=== PATIENT | female | born 1985 | race African-American/Black ===

== ENCOUNTER → 2016-12-30 | Outpatient (REF) | payer BC ==
[2016-12-30 13:22] LABS: ANION GAP 9 MEQ/L (8-16); BLOOD UREA NITROGEN 14 MG/DL (7-18); CALCIUM LEVEL 8.6 MG/DL (8.5-10.1); CARBON DIOXIDE LEVEL 23 MEQ/L (21-32); CHLORIDE LEVEL 110 MEQ/L (98-107); CREATININE FOR GFR 0.75 MG/DL (0.55-1.02); GLOMERULAR FILTRATION RATE > 60.0 (>60); GLUCOSE, FASTING 88 MG/DL (70-105); SODIUM LEVEL 142 MEQ/L (136-145)
== END ==
LOC: M LABDRAW1 11:52
PROVIDERS: ATTEND Emergency Medicine
DX: E87.6 Hypokalemia (principal); E55.9 Vitamin D deficiency, unspecified

== ENCOUNTER 2017-07-12 09:50 | Emergency (ER) | payer OTHER, SELFPAY | END 2017-07-12 12:09 | disposition home or self-care (01) | LOC: M ED 09:50 | DX: J32.9 Chronic sinusitis, unspecified (principal); J30.9 Allergic rhinitis, unspecified; K21.9 Gastro-esophageal reflux disease without esophagitis; Z79.899 Other long term (current) drug therapy; Z88.8 Allergy status to other drugs, medicaments and biological substances; Z88.5 Allergy status to narcotic agent; Z91.040 Latex allergy status; Z87.19 Personal history of other diseases of the digestive system | CPT/HCPCS: 99283 ==

== ENCOUNTER → 2017-10-12 | Outpatient (REF) | payer OTHER ==
[2017-10-12 13:25] LABS: HEMATOCRIT 36.5 % (36.0-47.0); HEMOGLOBIN 11.2 g/dl (12.0-15.5); MEAN CORPUSCULAR HEMOGLOBIN 25.2 pg (27.0-33.0); MEAN CORPUSCULAR HGB CONC 30.7 g/dl (32.0-36.5); MEAN CORPUSCULAR VOLUME 82.2 fl (80.0-96.0); PLATELET COUNT, AUTOMATED 282 10^3/uL (150-450); RED BLOOD COUNT 4.44 10^6/uL (4.00-5.40); WHITE BLOOD COUNT 5.8 10^3/uL (4.0-10.0)
[2017-10-12 14:09] LABS: HCG, SERUM QUANTITATIVE 1308 MIU/ML
[2017-10-13 11:37] LABS: RUBELLA IgG QUALITATIVE IMMUNE (IMMUNE)
[2017-10-13 11:41] LABS: HBsAg Prenatal NEGATIVE (NEGATIVE)
[2017-10-13 12:05] LABS: HEPATITIS C VIRUS ABY INDEX 0.1 INDEX (<0.8)
[2017-10-13 12:07] LABS: HIV 1&2 SCREEN CENTAUR NEGATIVE (NEGATIVE)
== END ==
LOC: M LAB REF 13:04
DX: O36.80X0 Pregnancy with inconclusive fetal viability, not applicable or unspecified (principal)

== ENCOUNTER 2017-11-28 16:31 | Emergency (ER) | payer OTHER ==
[2017-11-28 17:19] LABS: HEMATOCRIT 37.6 % (36.0-47.0); HEMOGLOBIN 12.2 g/dl (12.0-15.5); MEAN CORPUSCULAR HEMOGLOBIN 27.8 pg (27.0-33.0); MEAN CORPUSCULAR HGB CONC 32.4 g/dl (32.0-36.5); MEAN CORPUSCULAR VOLUME 85.6 fl (80.0-96.0); PLATELET COUNT, AUTOMATED 271 10^3/uL (150-450); RED BLOOD COUNT 4.39 10^6/uL (4.00-5.40); RED CELL DISTRIBUTION WIDTH 16.2 % (11.5-14.5); WHITE BLOOD COUNT 6.9 10^3/uL (4.0-10.0)
[2017-11-28 17:25] LABS: KETONE, URINE AUTO RFX NEGATIVE (NEGATIVE); LEUKOCYTE ESTERASE UR AUTO RFX NEGATIVE (NEGATIVE); MUCUS, URINE RFX SMALL (NEGATIVE); NITRITE, URINE AUTO RFX NEGATIVE (NEGATIVE); RBC, URINE AUTO RFX 170 /HPF (0-3); SPECIFIC GRAVITY UR AUTO RFX 1.024 (1.002-1.035); SQUAM EPITHELIAL CELL UR AURFX 2 /HPF (0-6); WBC, URINE AUTO RFX 4 /HPF (0-3)
[2017-11-28 17:46] LABS: BASO % 0.3 % (0.0-1.0); EOS # 0.2 10^3/uL (0.0-0.50); EOS % 2.8 % (0.0-3.0); IMMATURE GRANULOCYTE % 0.3 % (0-3.0); LYMPH # 2.7 10^3/uL (1.5-4.5); LYMPH % 39.4 % (24.0-44.0); MONO # 0.5 10^3/uL (0.0-0.8); MONO % 6.7 % (0.0-5.0); NEUTROPHILS # 3.5 10^3/uL (1.8-7.7); NEUTROPHILS % 50.5 % (36.0-66.0)
[2017-11-28 17:47] LABS: DIFF SLIDE NUMBER 179; PLATELET ESTIMATE NORMAL (NORMAL)
[2017-11-28 17:51] LABS: HCG, SERUM QUANTITATIVE 4635 MIU/ML
[2017-11-28 21:55] LABS: CHLAMYDIA DNA AMPLIFICATION NEGATIVE (NEGATIVE); GC DNA AMPLIFICATION NEGATIVE (NEGATIVE)
== END 2017-11-28 21:30 | disposition home or self-care (01) ==
LOC: M ED 16:31
DX: O02.0 Blighted ovum and nonhydatidiform mole (principal); O99.611 Diseases of the digestive system complicating pregnancy, first trimester; K21.9 Gastro-esophageal reflux disease without esophagitis; Z3A.08 8 weeks gestation of pregnancy; Z88.5 Allergy status to narcotic agent; Z88.8 Allergy status to other drugs, medicaments and biological substances; Z91.040 Latex allergy status
CPT/HCPCS: 76801

== ENCOUNTER → 2017-11-30 | Outpatient (REF) | payer OTHER ==
[2017-11-30 14:59] LABS: HCG, SERUM QUANTITATIVE 3681 MIU/ML
== END ==
LOC: M LAB REF 13:30
DX: O03.9 Complete or unspecified spontaneous abortion without complication (principal)

== ENCOUNTER → 2017-12-14 | Outpatient (REF) | payer OTHER ==
[2017-12-14 14:14] LABS: HCG, SERUM QUANTITATIVE 50 MIU/ML
== END ==
LOC: M LAB REF 13:04
DX: O03.9 Complete or unspecified spontaneous abortion without complication (principal)

== ENCOUNTER → 2017-12-20 | Outpatient (REF) | payer OTHER ==
[2017-12-20 14:02] LABS: HCG, SERUM QUANTITATIVE 20 MIU/ML
== END ==
LOC: M LAB REF 12:58
DX: O03.9 Complete or unspecified spontaneous abortion without complication (principal)

== ENCOUNTER → 2018-05-23 | Outpatient (CLI) | payer OTHER | LOC: M WUC 18:40 | DX: R93.6 Abnormal findings on diagnostic imaging of limbs (principal); M25.561 Pain in right knee | CPT/HCPCS: 73560 ==

== ENCOUNTER → 2018-05-26 | Outpatient (CLI) | payer OTHER ==
[2018-05-26 20:25] LABS: URIC ACID 3.9 MG/DL (2.6-6.0)
[2018-05-26 20:25] LABS: C REACTIVE PROTEIN QUANTITATIV < 0.30 MG/DL (0.00-0.30); RHEUMATOID FACTOR QUANT < 10.0 IU/ML (<15.0)
[2018-05-26 22:30] LABS: ERYTHROCYTE SEDIMENTATION RATE 8 mm/hr (0-20)
== END ==
LOC: M WUC 18:00
DX: M25.561 Pain in right knee (principal)
CPT/HCPCS: 84550

== ENCOUNTER → 2018-10-11 | Outpatient (REF) | payer OTHER ==
[~2018-10-11] MED LIST: AMOX875T PO; FLON1SPR; GUAI1200 PO; OMEP40CA2 PO; ZYRT10CA5 PO
[2018-10-11 12:34] LABS: BLOOD UREA NITROGEN 7 MG/DL (7-18); CALCIUM LEVEL 8.9 MG/DL (8.5-10.1); CARBON DIOXIDE LEVEL 22 MEQ/L (21-32); CHLORIDE LEVEL 110 MEQ/L (98-107); CREATININE FOR GFR 0.82 MG/DL (0.55-1.30); GLOMERULAR FILTRATION RATE > 60.0 (>60); GLUCOSE, FASTING 93 MG/DL (70-100); POTASSIUM SERUM 3.5 MEQ/L (3.5-5.1); SODIUM LEVEL 140 MEQ/L (136-145)
== END ==
LOC: M LABDRAW1 10:03
PROVIDERS: ATTEND Physician Assistant
DX: Z00.00 Encounter for general adult medical examination without abnormal findings (principal)

== ENCOUNTER → 2018-11-15 | Outpatient (REF) | payer OTHER ==
[2018-11-15 14:16] LABS: HEMATOCRIT 37.7 % (36.0-47.0); HEMOGLOBIN 12.7 g/dl (12.0-15.5); MEAN CORPUSCULAR HEMOGLOBIN 31.2 pg (27.0-33.0); MEAN CORPUSCULAR HGB CONC 33.7 g/dl (32.0-36.5); MEAN CORPUSCULAR VOLUME 92.6 fl (80.0-96.0); PLATELET COUNT, AUTOMATED 248 10^3/uL (150-450); RED BLOOD COUNT 4.07 10^6/uL (4.00-5.40); WHITE BLOOD COUNT 6.6 10^3/uL (4.0-10.0)
[2018-11-15 15:20] LABS: HCG, SERUM QUANTITATIVE 105252 MIU/ML
[2018-11-16 10:15] LABS: RUBELLA IgG QUALITATIVE IMMUNE (IMMUNE)
[2018-11-16 10:46] LABS: HIV 1&2 SCREEN CENTAUR NEGATIVE (NEGATIVE)
== END ==
LOC: M LAB REF 12:52
PROVIDERS: ATTEND Obstetrics & Gynecology
DX: O36.80X0 Pregnancy with inconclusive fetal viability, not applicable or unspecified (principal); Z32.01 Encounter for pregnancy test, result positive

== ENCOUNTER 2018-12-09 12:03 | Emergency (ER) | payer OTHER ==
[~2018-12-09] VITALS: Ht 165.1 cm; Wt 88.8 kg
[2018-12-09 12:52] LABS: BASO % 0.2 % (0.0-1.0); EOS # 0.1 10^3/uL (0.0-0.50); HEMATOCRIT 37.5 % (36.0-47.0); HEMOGLOBIN 12.8 g/dl (12.0-15.5); LYMPH # 1.8 10^3/uL (1.5-4.5); LYMPH % 30.4 % (24.0-44.0); MEAN CORPUSCULAR HEMOGLOBIN 31.7 pg (27.0-33.0); MEAN CORPUSCULAR HGB CONC 34.1 g/dl (32.0-36.5); MEAN CORPUSCULAR VOLUME 92.8 fl (80.0-96.0); MONO # 0.4 10^3/uL (0.0-0.8); MONO % 6.8 % (0.0-5.0); NEUTROPHILS # 3.7 10^3/uL (1.8-7.7); NEUTROPHILS % 61.1 % (36.0-66.0); PLATELET COUNT, AUTOMATED 239 10^3/uL (150-450); RED BLOOD COUNT 4.04 10^6/uL (4.00-5.40); WHITE BLOOD COUNT 6.1 10^3/uL (4.0-10.0)
--- NOTE | 2018-12-09 13:11 | REP ---
Clinical: Vaginal bleeding for viability. Technique: Transabdominal first trimester obstetrical ultrasound with color Doppler evaluation. Findings: Single live intrauterine identified. [place] rump length of 7 cm corresponds to 13 weeks 1 day gestational age with SARA 06/15/2019. heart rate equals 165 beats per minute. Placenta identified posteriorly and grade zero with evidence for complete abruption likely to resolve as progresses. Cervix measures 3.2 cm length and appears closed. Impression: Single live intrauterine at 13 weeks 1 day gestational age. Complete anatomical assessment should be performed at 19-20 weeks. Electronically Signed by Timi Reed MD 12/09/2018 01:02 P
[2018-12-09] MEDS ORDERED: ONDANSETRON 4 MG ORAL DISINTEGRATING TAB (Q0162 PER 1MG) PO ONE (13:15)
[2018-12-09 13:35] LABS: BLOOD UREA NITROGEN 7 MG/DL (7-18); CALCIUM LEVEL 9.3 MG/DL (8.5-10.1); CARBON DIOXIDE LEVEL 25 MEQ/L (21-32); CHLORIDE LEVEL 107 MEQ/L (98-107); CREATININE FOR GFR 0.57 MG/DL (0.55-1.30); GLOMERULAR FILTRATION RATE > 60.0 (>60); GLUCOSE, FASTING 78 MG/DL (70-100); HCG, SERUM QUANTITATIVE 59382 MIU/ML; POTASSIUM SERUM 3.9 MEQ/L (3.5-5.1); SODIUM LEVEL 140 MEQ/L (136-145)
[2018-12-09] MEDS ORDERED: FLAG500T PO (14:43)
[2018-12-09] MEDS ORDERED: ZOFR4TAB16 PO (14:45)
[2018-12-09 15:54] LABS: CHLAMYDIA DNA AMPLIFICATION NEGATIVE (NEGATIVE); GC DNA AMPLIFICATION NEGATIVE (NEGATIVE)
[2018-12-09 16:01] VITALS: BP 125/75
== END 2018-12-09 16:04 | disposition home or self-care (01) ==
LOC: M ED 12:03
DX: O23.599 Infection of other part of genital tract in pregnancy, unspecified trimester (principal); Z3A.13 13 weeks gestation of pregnancy; Z87.442 Personal history of urinary calculi; Z88.5 Allergy status to narcotic agent; Z91.040 Latex allergy status
CPT/HCPCS: 36415; 76801; 80048; 81001; 84702; 85025; 86901; 87210; 87661; 99284; Q0162

== ENCOUNTER 2018-12-18 04:19 | Emergency (ER) | payer OTHER ==
[~2018-12-18] VITALS: Ht 165.1 cm; Wt 87.3 kg
[~2018-12-18 04:19] MED LIST changes: +FLAG500T PO; +ZOFR4TAB16 PO
[2018-12-18 04:49] LABS: BASO % 0.1 % (0.0-1.0); EOS # 0.1 10^3/uL (0.0-0.50); EOS % 1.2 % (0.0-3.0); HEMATOCRIT 36.2 % (36.0-47.0); HEMOGLOBIN 12.5 g/dl (12.0-15.5); LYMPH # 1.6 10^3/uL (1.5-4.5); MEAN CORPUSCULAR HEMOGLOBIN 32.1 pg (27.0-33.0); MEAN CORPUSCULAR HGB CONC 34.5 g/dl (32.0-36.5); MEAN CORPUSCULAR VOLUME 92.8 fl (80.0-96.0); MONO # 0.3 10^3/uL (0.0-0.8); MONO % 4.5 % (0.0-5.0); NEUTROPHILS # 4.9 10^3/uL (1.8-7.7); NEUTROPHILS % 70.9 % (36.0-66.0); PLATELET COUNT, AUTOMATED 205 10^3/uL (150-450); WHITE BLOOD COUNT 6.8 10^3/uL (4.0-10.0)
[2018-12-18] MEDS ORDERED: KETOROLAC 60 MG/2 ML VIAL (J1885) IM ONE (05:45)
[2018-12-18 05:49] VITALS: BP 112/71
--- NOTE | 2018-12-18 06:29 | REPVR ---
EXAM: US First Trimester, Transabdominal EXAM DATE/TIME: 12/18/2018 5:10 AM CLINICAL HISTORY: 33 years old, female; complicated by abdominal or pelvic pain; Lower; Second trimester; Gestational age or lmp: 14 weeks; ; Additional info: Shonna do TECHNIQUE: Imaging protocol: Real-time transabdominal obstetrical ultrasound of the maternal pelvis and a first trimester , less than 14 weeks 0 days, with image documentation. COMPARISON: US PELVIC NON OB COMPLETE 06/15/2013 8:32 AM FINDINGS: Limitations: Limited examination for viability and dating was performed. GESTATION: Gestation: Single, live, intrauterine gestation Heart rate: heart rate: 152 beats per minute. Placenta: Placenta is posterior. Amniotic fluid: Amniotic fluid is grossly within normal limits for gestational age. BIOMETRY: Estimated gestational age: Gestational age by today's ultrasound 14 weeks, 3 days. Estimated due date: Estimated date of delivery 06/15/2019. Estimated weight: 96 g (60% Hadlock). Biparietal diameter: 2.7 cm for a gestational age of 14 weeks, 6 days. Head circumference: 10.3 cm for a gestational age of 14 weeks, 6 days. Abdominal circumference: 8.2 cm for a gestational age of 14 weeks, 4 days. Humerus length: 1.5 cm for gestational age of 14 weeks, 2 days. Femur length: 1.4 cm for a gestational age of 14 weeks, 0 days. MATERNAL: Uterus: Unremarkable. Cervix: Cervical length: 2.5 cm. Right adnexa: Unremarkable. Left adnexa: Unremarkable. Intraperitoneal: No intraperitoneal free fluid. IMPRESSION: Single live intrauterine fetus with an estimated gestational age of 14 weeks, 3 days, and a heart rate of 152 beats per minute. Routine anatomic survey at 19-20 weeks gestational age is recommended. Electronically signed by: Adrián Ma On 12/18/2018 06:28:37 AM
== END 2018-12-18 05:50 | disposition home or self-care (01) ==
LOC: M ED 04:19
DX: O20.0 Threatened abortion (principal); O99.612 Diseases of the digestive system complicating pregnancy, second trimester; Z3A.14 14 weeks gestation of pregnancy; Z79.899 Other long term (current) drug therapy; Z88.6 Allergy status to analgesic agent; Z88.5 Allergy status to narcotic agent; Z91.040 Latex allergy status

== ENCOUNTER → 2019-03-08 | Outpatient (CLI) | payer OTHER ==
[2019-03-08 19:50] LABS: HEMATOCRIT 33.8 % (36.0-47.0); HEMOGLOBIN 11.6 g/dl (12.0-15.5); MEAN CORPUSCULAR HEMOGLOBIN 33.5 pg (27.0-33.0); MEAN CORPUSCULAR HGB CONC 34.3 g/dl (32.0-36.5); MEAN CORPUSCULAR VOLUME 97.7 fl (80.0-96.0); PLATELET COUNT, AUTOMATED 188 10^3/uL (150-450); RED BLOOD COUNT 3.46 10^6/uL (4.00-5.40); WHITE BLOOD COUNT 8.7 10^3/uL (4.0-10.0)
== END ==
LOC: M WUC 17:16
PROVIDERS: ATTEND Obstetrics & Gynecology
DX: Z34.82 Encounter for supervision of other normal pregnancy, second trimester (principal); Z3A.00 Weeks of gestation of pregnancy not specified

== ENCOUNTER 2019-06-06 07:30 | Inpatient (IN) | payer OTHER ==
[~2019-06-06] VITALS: Ht 165.1 cm; Wt 88.7 kg
[~2019-06-06 07:30] MED LIST changes: +CETI10CH PO; -OMEP40CA2 PO; +OMEP40CA97 PO
[2019-06-07] VITALS (19 sets, daily range): BP systolic 98–118; BP diastolic 57–79
[2019-06-07] MEDS ORDERED: BICITRA 30ML SOLN UDC PO ONE (05:15)
[2019-06-07] MEDS ORDERED: ceFAZolin SOD 2 GM in IV 1 EA IV ONE (05:15)
[2019-06-07] MEDS ORDERED: LR 1,000 ML IV SCH (05:15)
[2019-06-07] MEDS ORDERED: LACTATED RINGER'S 1000 ML IV STA (05:15)
[2019-06-07 05:41] LABS: HEMATOCRIT 36.4 % (36.0-47.0); HEMOGLOBIN 12.3 g/dl (12.0-15.5); MEAN CORPUSCULAR HEMOGLOBIN 32.5 pg (27.0-33.0); MEAN CORPUSCULAR HGB CONC 33.8 g/dl (32.0-36.5); PLATELET COUNT, AUTOMATED 175 10^3/uL (150-450); RED BLOOD COUNT 3.79 10^6/uL (4.00-5.40); WHITE BLOOD COUNT 6.7 10^3/uL (4.0-10.0)
[2019-06-07] MEDS ORDERED: MULTTAB20 PO (06:10)
[2019-06-07] MEDS ORDERED: MORPHINE PRES-FREE INJ 10 MG/10 ML VIAL (J2274) As Ordered ONE (07:17)
[2019-06-07] MEDS ORDERED: dexameTHASONE 4 MG/ML 1ML VIAL (J1100) As Ordered ONE (07:18)
[2019-06-07] MEDS ORDERED: ONDANSETRON 4MG/2ML VIAL (J2405) As Ordered ONE (07:18)
[2019-06-07] MEDS ORDERED: OXYTOCIN INJ 10 UNITS/ML VIAL (J2590) As Ordered ONE (07:24)
[2019-06-07] MEDS ORDERED: diphenhydrAMINE INJ 50MG/ML VIAL (J1200) IV PRN (07:43)
[2019-06-07] MEDS ORDERED: ONDANSETRON 4MG/2ML VIAL (J2405) IV PRN (07:43)
[2019-06-07] MEDS ORDERED: METOCLOPRAMIDE INJ 10MG/2ML VIAL (J2765) IV PRN (07:43)
[2019-06-07] MEDS ORDERED: NALBUPHINE HCL 10 MG/ML AMP (J2300) IV PRN (07:43)
[2019-06-07] MEDS ORDERED: NALOXONE INJ 0.4 MG/1 ML VIAL (J2310) IV PRN ×2 (07:43)
[2019-06-07] MEDS ORDERED: PHENYLephrine HCL 500 MCG/5 ML (100MCG/ML) SYRINGE (J2370) As Ordered ONE (08:05)
[2019-06-07] MEDS ORDERED: ePHEDrine SULFATE 25 MG/5 ML(5MG/ML) SYRINGE As Ordered ONE (08:05)
[2019-06-07 08:21] LABS: CORD GAS ABE V -0.8; CORD GAS HCO3 V 25.5 MEQ/L; CORD GAS O2 SAT V 71.5 %; CORD GAS PCO2 V 48.8 mmHg; CORD GAS PH V 7.336 UNITS; CORD GAS PO2 V 32.1 mmHg; CORD GAS SBC V 23.2 MEQ/L
[2019-06-07 08:22] LABS: CORD GAS ABE A -0.4; CORD GAS HCO3 A 28.3 MEQ/L; CORD GAS O2 SAT A 33.5 %; CORD GAS PCO2 A 65.9 mmHg; CORD GAS PH A 7.251 UNITS; CORD GAS PO2 A 18.9 mmHg; CORD GAS SBC A 22.7 MEQ/L; CORD GAS TCO2 A 30.3 MEQ/L
[2019-06-07] MEDS ORDERED: OXYTOCIN DRIP 30 UNITS in IV 1 EA IV SCH (08:54)
[2019-06-07] MEDS ORDERED: RHOGAM 300 MCG (1500 IU) INJ (J2790) IM SCH (09:00)
[2019-06-07] MEDS: DOCUSATE SODIUM 100 MG CAP PO SCH ×2 (09:00→21:14)
[2019-06-07] MEDS ORDERED: METHYLERGONOVINE MALEATE 0.2 MG TAB PO PRN (09:00)
[2019-06-07] MEDS: PRENATAL VITAMINS CHEWABLE TABLET PO SCH (09:00)
[2019-06-07] MEDS ORDERED: MOM 30ML SUSPENSION UDC PO PRN (09:00)
[2019-06-07] MEDS ORDERED: MEASLES,MUMPS,RUBELLA VACCINE INJ (MMR-II) (90707) SC SCH (09:00)
[2019-06-07] MEDS ORDERED: PERCOCET 5MG/325MG TAB PO PRN ×2 (09:00)
[2019-06-07] MEDS ORDERED: OXYTOCIN 30 UNITS IN 0.9% NaCl 500ML IV BAG (J2590) As Ordered ONE (10:09)
[2019-06-07] MEDS: IBUPROFEN 800 MG TAB PO PRN (11:56)
[2019-06-08 02:00] VITALS: BP 101/70
[2019-06-08 06:00] VITALS: BP 108/72
[2019-06-08 06:05] LABS: HEMATOCRIT 29.6 % (36.0-47.0); MEAN CORPUSCULAR HEMOGLOBIN 32.7 pg (27.0-33.0); MEAN CORPUSCULAR HGB CONC 34.5 g/dl (32.0-36.5); MEAN CORPUSCULAR VOLUME 94.9 fl (80.0-96.0); PLATELET COUNT, AUTOMATED 152 10^3/uL (150-450); RED BLOOD COUNT 3.12 10^6/uL (4.00-5.40); WHITE BLOOD COUNT 11.5 10^3/uL (4.0-10.0)
[2019-06-08 06:09] LABS: HEMOGLOBIN 10.2 g/dl (12.0-15.5)
[2019-06-08] MEDS: IBUPROFEN 800 MG TAB PO PRN ×2 (07:47→16:15)
[2019-06-08] MEDS: PRENATAL VITAMINS CHEWABLE TABLET PO SCH (07:47)
[2019-06-08] MEDS: DOCUSATE SODIUM 100 MG CAP PO SCH ×2 (07:47→22:39)
[2019-06-08 10:01] VITALS: BP 105/64
[2019-06-08 14:00] VITALS: BP 111/71
[2019-06-08 18:09] VITALS: BP 111/67
[2019-06-09] MEDS: IBUPROFEN 800 MG TAB PO PRN (06:17)
[2019-06-09 06:18] VITALS: BP 128/75
[2019-06-09] MEDS ORDERED: PERCOCET PO (07:22)
[2019-06-09] MEDS ORDERED: IBUP80TA PO (07:22)
[2019-06-09] MEDS: PRENATAL VITAMINS CHEWABLE TABLET PO SCH (09:00)
[2019-06-09] MEDS: DOCUSATE SODIUM 100 MG CAP PO SCH (10:16)
--- NOTE | 2019-06-10 10:09 | DSES ---
DATE OF ADMISSION: 06/07/2019 DATE OF DISCHARGE: 06/09/2019 DISCHARGE DIAGNOSIS: Placenta previa. CONDITION ON DISCHARGE: Stable. PROCEDURES PERFORMED: 1. Spinal anesthesia. 2. section. HISTORY AND HOSPITAL COURSE: The patient is a 34-year-old who presented for scheduled section which was uncomplicated. By postoperative day #2 she had met all discharge criteria she was discharged home in stable condition. PHYSICAL EXAMINATION: On day of discharge her vital signs stable. She is afebrile. General appearance: Well appearing, no acute distress. Abdomen was soft and appropriately tender. Incision was clean, dry, intact. Extremities: Negative for calf tenderness. DISCHARGE INSTRUCTIONS: She instructed to follow up in 2 weeks for incision check. Report severe pain, heavy vaginal bleeding, fever or incisional issues. DISCHARGE MEDICATIONS: Ibuprofen and Percocet.
--- NOTE | 2019-06-10 12:53 | RO ---
DATE OF PROCEDURE: 06/07/2019 Dalia is a 34-year-old female with a history of prior section and placenta previa. After counseling in the office, a decision was made to proceed with a repeat section, bilateral tubal ligation, and revision of old scar. PREOPERATIVE DIAGNOSES: 1. Term for elective repeat section. 2. Placenta previa. 3. Desires permanent tubal sterilization. POSTOPERATIVE DIAGNOSES: 1. Term for elective repeat section. 2. Placenta previa. 3. Desires permanent tubal sterilization. PROCEDURES: 1. Repeat section. 2. Bilateral salpingectomy. 3. Revision of old scar. ANESTHESIA: Spinal. SURGEON: Jose Antonio Russ DO SENIOR BIOINFORMATICS SCIENTIST: Amanda Linder CNM COMPLICATION: None. ESTIMATED BLOOD LOSS: 700 mL. FINDINGS: Live male in occiput transverse position. scores 8 and 9. weight 7 pounds 3 ounces. Normal-appearing tubes and ovaries. DESCRIPTION OF PROCEDURE: After obtaining informed consent, the patient was taken to the operating room where spinal anesthetic was found be adequate. She was then draped and prepped in usual sterile fashion in the supine position. At this point, an elliptical incision was made over her old scar. This was carried down to the fascia. The fascia was incised in midline fashion and carried through laterally. Superior aspect of the fascia was then grasped with Dolores clamps, tented off, and dissected off the rectus muscles sharply. The inferior aspect was dissected off in a similar fashion. Rectus muscles in midline fashion. Peritoneum identified. Peritoneal cavity entered bluntly with the help of Amanda Linder my food trades assistants. A low-transverse uterine incision was made. The was delivered in atraumatic fashion. Nose and mouth bulb suctioned. Cord doubly clamped and cut, and was handed over to the awaiting warmer. Cord clamped. Cord blood and cord gas were sent. Placenta removed manually. Uterus cleared of all clot and debris, and the uterine incision was then repaired in two separate layers of 0 Vicryl sutures. Pitocin given to help with uterine contractions. At this point, attention was then turned to the fallopian tube, where the fimbriated end was identified. Caridad clamp was placed along the mesosalpinx, and the tube was then removed using a Bovie. Then, the segment of the tube was then suture ligated using a 3-0 chromic suture. The opposite side was done in similar fashion. Both tubes were sent to pathology for final diagnosis. At this point, the pelvis was copiously irrigated with normal saline and suctioned out. Attention turned to the peritoneum, which was closed in a running fashion using 2-0 Vicryl. Fascia closed in two separate segments of 0 Vicryl sutures. All superficial bleeders were coagulated, and the skin was reapproximated in subcuticular fashion using 3-0 Vicryl on a Nils. Steri-Strips placed. The patient tolerated the procedure well. She was then transferred to recovery room in stable condition.
== END 2019-06-09 12:35 | disposition home or self-care (01) | DRG 784 ==
LOC: M LDI 06-07 05:00 → EDSTATUS 06-07 07:30 → M OBS 06-07 10:55
PROVIDERS: ADMIT Obstetrics & Gynecology; ATTEND Obstetrics & Gynecology
PROC: 0UB70ZZ Excision of Bilateral Fallopian Tubes, Open Approach (ICD-10-PCS; 2019-06-07)
PROC: 10D00Z1 Extraction of Products of Conception, Low, Open Approach (ICD-10-PCS; principal; 2019-06-07 07:30)
DX: O34.211 Maternal care for low transverse scar from previous cesarean delivery (principal); O44.03 Complete placenta previa NOS or without hemorrhage, third trimester; Z3A.39 39 weeks gestation of pregnancy; Z37.0 Single live birth; Z30.2 Encounter for sterilization

== ENCOUNTER → 2019-09-18 | Outpatient (REF) | payer OTHER ==
[~2019-09-18] MED LIST changes: +IBUP80TA PO; +MULTTAB20 PO; +PERCOCET PO
== END ==
LOC: M LAB REF 13:32
PROVIDERS: ATTEND Physician Assistant Medical
DX: J02.9 Acute pharyngitis, unspecified (principal)

== ENCOUNTER → 2021-01-01 | Outpatient (CLI) | payer OTHER ==
[~2021-01-01] MED LIST changes: +OMEP40CA4 PO; -OMEP40CA97 PO
--- NOTE | 2021-01-01 10:13 | REP ---
INDICATION: PAIN. COMPARISON: None TECHNIQUE: AP and lateral FINDINGS: The disc spaces are symmetric and relatively well maintained. There is no acute fracture or destructive osseous lesion. IMPRESSION: Within normal limits <Electronically signed by Raheem Contreras > 01/01/21 [id number]
--- NOTE | 2021-01-01 10:15 | REP ---
INDICATION: Atraumatic pain COMPARISON: None TECHNIQUE: Seven views FINDINGS: Seven views of the cervical spine show no acute fracture, dislocation or subluxation. The intervertebral disc spaces are symmetric and well maintained. The facet joints are well aligned bilaterally. The intervertebral foramina are patent bilaterally and the neural canal is not encroached upon. There is no destructive osseous lesion. Flexion and extension does not appear to be particularly limited radiographically. The anterior spinal soft tissues appear unremarkable. IMPRESSION: Unremarkable cervical spine series. <Electronically signed by Raheem Contreras > 01/01/21 101
== END ==
LOC: M WUC 09:52
PROVIDERS: ATTEND Physician Assistant Medical
DX: M54.2 Cervicalgia (principal); M54.14 Radiculopathy, thoracic region

== ENCOUNTER → 2021-03-05 | Outpatient (CLI) | payer OTHER ==
--- NOTE | 2021-03-05 08:45 | REP ---
INDICATION: RUQ ABD PAIN COMPARISON: None. TECHNIQUE: Real time ryan scale ultrasound examination using curved array transducer. FINDINGS: Liver is normal in contour, size, and overall echogenicity measuring 17 cm in craniocaudal length. A 3.1 x 2.9 x 1.8 cm hyperechoic focus in the right lobe is identified along with 1.9 x 1.9 x 1.9 cm isoechoic lesion. Pancreas is incompletely evaluated due to interposed bowel gas. The gallbladder demonstrates small amount of layering sludge without wall thickening, or pericholecystic fluid. No biliary ductal dilatation is appreciated and the common bile duct measures 2.0 mm diameter. Right kidney is normal in reniform shape without hydronephrosis and measures 11.0 x 5.9 x 4.0 cm. No ascites in the visualized right upper quadrant. IMPRESSION: 1. Two nonspecific liver lesions as described above could not be corroborated with most recent prior CT dated 06/08/2012. These findings may represent benign structures such as hemangiomas. However, follow-up pre and postcontrast CT of the abdomen is recommended for further investigation. 2. Small amount of layering sludge in the gallbladder. <Electronically signed by Timi Reed > 03/05/21 [id number]
== END ==
LOC: M RAD 07:49
PROVIDERS: ATTEND Registered Nurse
DX: R10.9 Unspecified abdominal pain (principal)

== ENCOUNTER → 2021-03-11 | Outpatient (CLI) | payer OTHER ==
[~2021-03-11] MED LIST changes: +ISOVUE-370 76% 100ML VIAL As Ordered ONE
--- NOTE | 2021-03-12 08:20 | REP ---
INDICATION: LIVER DISEASE UNSPECIFIED. COMPARISON: CT dated 06/08/2012; ultrasound dated 03/05/2021 TECHNIQUE: Axial precontrast, contrast-enhanced and delayed images of the abdomen using 100 cc Isovue 370 intravenous contrast material. Coronal and sagittal reformations obtained. This CT examination was performed using the following dose reduction techniques: Automated exposure control, adjustment of mA and/or kv according to the patient's size, and the use of iterative reconstruction technique. FINDINGS: Liver includes 2 cm flash filling hemangioma along the periphery of the medial segment left lobe and 3 cm hemangioma along the posterior tip of the right hepatic lobe. These findings are consistent with recent ultrasound and very vaguely suggested and presumed stable based on 2012 CT. The spleen, pancreas, gallbladder, bilateral adrenal glands and kidneys are normal. The visualized enteric system including stomach and portions of the small and large bowel appear normal. No evidence for obstruction or acute inflammatory process. Normal terminal ileum and appendix are identified in the right lower quadrant. No ascites. No free air. No intraperitoneal or retroperitoneal adenopathy. Abdominal aorta and vasculature appear normal. Musculoskeletal structures are intact and without acute osseous abnormality. IMPRESSION: Liver includes 2 lesions most compatible with benign hemangiomas consistent with findings on recent ultrasound. <Electronically signed by Timi Reed > 03/12/21 [id number]
== END ==
LOC: M RAD 13:06
PROVIDERS: ATTEND Registered Nurse
DX: K76.9 Liver disease, unspecified (principal)

== ENCOUNTER → 2021-11-20 | Outpatient (CLI) | payer OTHER ==
[~2021-11-20] MED LIST changes: -ISOVUE-370 76% 100ML VIAL As Ordered ONE; +KETO10TAB PO; +MULT-90 PO; +OMEP40CA5; +ONDA4TAB6 PO
== END ==
LOC: M LABSMTC 09:06
PROVIDERS: ATTEND Anesthesiology
DX: Z01.812 Encounter for preprocedural laboratory examination (principal); Z20.822 Contact with and (suspected) exposure to COVID-19

== ENCOUNTER 2021-11-25 06:16 | Day surgery (SDC) | payer OTHER ==
[~2021-11-25] VITALS: Ht 165.1 cm; Wt 89.4 kg
[~2021-11-25 06:16] MED LIST changes: +LR 1,000 ML IV ONE; +ceFAZolin SOD 2 GM in IV 1 EA IV ONE
[2021-11-25] MEDS ORDERED: BUPIVACAINE/EPIN 0.25% 30 ML VIAL As Ordered ONE (07:17)
[2021-11-25] MEDS ORDERED: ONDANSETRON 4MG/2ML VIAL As Ordered ONE (07:54)
[2021-11-25] MEDS ORDERED: propofoL 200 MG/20 ML VIAL As Ordered ONE (07:54)
[2021-11-25] MEDS ORDERED: dexameTHASONE 4 MG/ML 1ML VIAL (J1100 PER 1MG) As Ordered ONE ×2 (07:54→07:55)
[2021-11-25] MEDS ORDERED: ROCURONIUM BROMIDE 50 MG/5 ML VIAL As Ordered ONE (07:54)
[2021-11-25] MEDS ORDERED: fentaNYL 250 MCG/5 ML INJECTION As Ordered ONE (07:54)
[2021-11-25] MEDS ORDERED: LIDOCAINE 2% 100MG/5ML SDV (FOR ANES.) As Ordered ONE (07:54)
[2021-11-25] MEDS ORDERED: MIDAZOLAM INJ 2MG/2ML VIAL (J2250 PER 1MG) As Ordered ONE (07:55)
[2021-11-25] MEDS ORDERED: ESMOLOL INJ 100MG/10ML VIAL As Ordered ONE (07:55)
[2021-11-25] MEDS ORDERED: ACETAMINOPHEN 1000MG 100ML IV BTL (OFIRMEV) (J0131 PER 10MG) As Ordered ONE (07:56)
[2021-11-25] MEDS ORDERED: SUGAMMADEX SODIUM 500 MG/5 ML VIAL (BRIDION) As Ordered ONE (07:58)
[2021-11-25] MEDS ORDERED: KETOROLAC 60MG 2ML VIAL As Ordered ONE (08:23)
[2021-11-25] MEDS ORDERED: oxyCODONE 5MG TAB PO PRN (08:45)
[2021-11-25] MEDS ORDERED: fentaNYL 100 MCG/2 ML INJECTION IV PRN (08:45)
[2021-11-25] MEDS ORDERED: ONDANSETRON 4MG/2ML VIAL IV PRN (08:45)
[2021-11-25] MEDS ORDERED: NS 1,000 ML IV SCH (08:45)
[2021-11-25] MEDS ORDERED: LR 1,000 ML IV SCH (08:45)
[2021-11-25] MEDS ORDERED: traMADol 50 MG TAB PO PRN (08:45)
[2021-11-25 10:35] VITALS: BP 109/77
== END 2021-11-25 10:41 | disposition home or self-care (01) ==
LOC: M SDC 06:16
PROVIDERS: ATTEND Surgery
DX: K80.10 Calculus of gallbladder with chronic cholecystitis without obstruction (principal); K21.9 Gastro-esophageal reflux disease without esophagitis; Z79.899 Other long term (current) drug therapy
CPT/HCPCS: 47562; 81025; 88304; J0131; J0690; J1100; J1885; J2250; J2405; J3010

== ENCOUNTER 2021-11-30 09:40 | Emergency (ER) | payer OTHER ==
[~2021-11-30] VITALS: Ht 165.1 cm; Wt 89.6 kg
[2021-11-30 09:40] VITALS: BP 138/73
[~2021-11-30 09:40] MED LIST changes: -LR 1,000 ML IV ONE; -ceFAZolin SOD 2 GM in IV 1 EA IV ONE
[2021-11-30] MEDS ORDERED: TRAM50TA2 (09:46)
== END 2021-11-30 12:00 | disposition home or self-care (01) ==
LOC: M ED 09:40
DX: G89.18 Other acute postprocedural pain (principal); R06.02 Shortness of breath; Z88.6 Allergy status to analgesic agent; Z91.040 Latex allergy status; Z91.018 Allergy to other foods; Z79.899 Other long term (current) drug therapy

== ENCOUNTER → 2022-04-20 | Outpatient (CLI) | payer OTHER ==
[~2022-04-20] MED LIST changes: +BARIUM SULFATE 700 MG TABLET (E-Z-DISK) As Ordered ONE; +E-Z-PAQUE 96% w/w SUSP 176GM BTL As Ordered ONE; +TRAM50TA2; +VARIBAR NECTAR 40% w/v 240ML SUSP BTL As Ordered ONE; +VARIBAR PUDDING 40% w/v 230ML TUBE As Ordered ONE
== END ==
LOC: M RAD 12:55
PROVIDERS: ATTEND Surgery
DX: R13.10 Dysphagia, unspecified (principal)

== ENCOUNTER → 2022-05-10 | Outpatient (CLI) | payer OTHER ==
[~2022-05-10] MED LIST changes: -BARIUM SULFATE 700 MG TABLET (E-Z-DISK) As Ordered ONE; -E-Z-PAQUE 96% w/w SUSP 176GM BTL As Ordered ONE; -VARIBAR NECTAR 40% w/v 240ML SUSP BTL As Ordered ONE; -VARIBAR PUDDING 40% w/v 230ML TUBE As Ordered ONE
== END ==
LOC: M LABSMTC 11:21
PROVIDERS: ATTEND Anesthesiology
DX: Z01.812 Encounter for preprocedural laboratory examination (principal); Z20.822 Contact with and (suspected) exposure to COVID-19

== ENCOUNTER 2022-05-14 10:55 | Day surgery (SDC) | payer OTHER ==
[~2022-05-14] VITALS: Ht 165.1 cm; Wt 90.0 kg
[~2022-05-14 10:55] MED LIST changes: +LIDOCAINE 2% 100MG/5ML SDV (FOR ANES.) As Ordered ONE; +NS 1,000 ML IV ONE; +SIMETHICONE 40MG/0.6ML DROPS 30ML As Ordered ONE; +propofoL 200 MG/20 ML VIAL As Ordered ONE
[2022-05-14 12:59] VITALS: BP 122/85
== END 2022-05-14 13:03 | disposition home or self-care (01) ==
LOC: M OPP 10:55
PROVIDERS: ATTEND Surgery
DX: K44.9 Diaphragmatic hernia without obstruction or gangrene (principal); R13.10 Dysphagia, unspecified; Z79.1 Long term (current) use of non-steroidal anti-inflammatories (NSAID); Z79.899 Other long term (current) drug therapy; Z88.5 Allergy status to narcotic agent; Z91.018 Allergy to other foods; Z91.040 Latex allergy status

== ENCOUNTER → 2023-08-30 | Outpatient (REF) | payer OTHER ==
[~2023-08-30] MED LIST changes: -LIDOCAINE 2% 100MG/5ML SDV (FOR ANES.) As Ordered ONE; -NS 1,000 ML IV ONE; -SIMETHICONE 40MG/0.6ML DROPS 30ML As Ordered ONE; -propofoL 200 MG/20 ML VIAL As Ordered ONE
[2023-08-30 13:28] LABS: PERCENT SATURATION 8.1 % (13.2-45.0)
[2023-08-30 13:30] LABS: FERRITIN 9.7 NG/ML (7.3-270.7)
== END ==
LOC: M LAB REF 12:06
PROVIDERS: ATTEND Nurse Practitioner Family
DX: D64.9 Anemia, unspecified (principal)

== ENCOUNTER → 2023-09-10 | Outpatient (CLI) | payer OTHER | LOC: M RAD 08:51 | PROVIDERS: ATTEND Obstetrics & Gynecology | DX: N92.0 Excessive and frequent menstruation with regular cycle (principal) ==

== ENCOUNTER 2023-12-15 09:38 | Day surgery (SDC) | payer OTHER ==
[~2023-12-15] VITALS: Ht 162.6 cm; Wt 87.8 kg
[~2023-12-15 09:38] MED LIST changes: +FERR30CA PO; +HYDROMORPHONE HCL 0.5 MG/ 0.5 ML SYRINGE IV PRN; +LR 1,000 ML IV SCH; +METOCLOPRAMIDE INJ 10MG/2ML VIAL IV PRN; +ONDA-282 PO; -ONDA4TAB6 PO; +ONDANSETRON 4MG 2ML VIAL IV PRN; +fentaNYL 100 MCG/2 ML INJECTION IV PRN; +oxyCODONE 5MG TAB PO PRN
[2023-12-15 10:09] LABS: HEMOGLOBIN 11.2 g/dl (12.0-15.5); MEAN CORPUSCULAR HEMOGLOBIN 28.1 pg (27.0-33.0); MEAN CORPUSCULAR VOLUME 87.9 fl (80.0-96.0); PLATELET COUNT, AUTOMATED 263 10^3/uL (150-450); RED BLOOD COUNT 3.98 10^6/uL (4.00-5.40); WHITE BLOOD COUNT 3.4 10^3/uL (4.0-10.0)
[2023-12-15] MEDS ORDERED: LR 1,000 ML IV SCH (10:20)
[2023-12-15] MEDS ORDERED: LIDOCAINE 2% 100MG/5ML SDV (FOR ANES.) As Ordered ONE (10:45)
[2023-12-15] MEDS ORDERED: propofoL 200 MG/20 ML VIAL As Ordered ONE (10:45)
[2023-12-15] MEDS ORDERED: MIDAZOLAM INJ 2MG/2ML VIAL As Ordered ONE (10:45)
[2023-12-15] MEDS ORDERED: fentaNYL 100 MCG/2 ML INJECTION As Ordered ONE (10:45)
[2023-12-15] MEDS ORDERED: KETOROLAC 60MG 2ML VIAL As Ordered ONE (10:45)
[2023-12-15] MEDS ORDERED: ONDANSETRON 4MG 2ML VIAL As Ordered ONE (10:45)
[2023-12-15] MEDS ORDERED: ACETAMINOPHEN 1000MG 100ML IV BAG As Ordered ONE (10:52)
[2023-12-15] MEDS: SCOPOLAMINE 1MG TRANSDERMAL PATCH TOP ONE (10:53)
[2023-12-15 13:40] VITALS: BP 117/70; TEMP 97.5; O2SAT 100
== END 2023-12-15 13:46 | disposition home or self-care (01) ==
LOC: M SDC 09:38
PROVIDERS: ATTEND Obstetrics & Gynecology
DX: N84.0 Polyp of corpus uteri (principal); N93.9 Abnormal uterine and vaginal bleeding, unspecified; Z88.5 Allergy status to narcotic agent; Z91.018 Allergy to other foods; J30.1 Allergic rhinitis due to pollen; Z91.040 Latex allergy status; Z79.899 Other long term (current) drug therapy
CPT/HCPCS: 36415; 58120; 58563; 81025; 85027; 86850; 86900; 86901; 88305; J0131; J1100; J1885; J2250; J2405; J3010

== ENCOUNTER → 2024-02-25 | Outpatient (REF) | payer OTHER ==
[~2024-02-25] MED LIST changes: -HYDROMORPHONE HCL 0.5 MG/ 0.5 ML SYRINGE IV PRN; -LR 1,000 ML IV SCH; -METOCLOPRAMIDE INJ 10MG/2ML VIAL IV PRN; -ONDANSETRON 4MG 2ML VIAL IV PRN; -fentaNYL 100 MCG/2 ML INJECTION IV PRN; -oxyCODONE 5MG TAB PO PRN
[2024-02-25 13:37] LABS: PERCENT SATURATION 15.3 % (13.2-45.0)
[2024-02-25 13:39] LABS: FERRITIN 6.8 NG/ML (7.3-270.7)
== END ==
LOC: M LAB REF 12:19
PROVIDERS: ATTEND Nurse Practitioner Family
DX: D64.9 Anemia, unspecified (principal)

== ENCOUNTER → 2024-05-02 | Outpatient (CLI) | payer OTHER | LOC: M WHC 07:31 | PROVIDERS: ATTEND Obstetrics & Gynecology | DX: Z12.31 Encounter for screening mammogram for malignant neoplasm of breast (principal) ==

== ENCOUNTER → 2024-05-24 | Outpatient (CLI) | payer OTHER | LOC: M WHC 08:50 | PROVIDERS: ATTEND Obstetrics & Gynecology | DX: Z12.31 Encounter for screening mammogram for malignant neoplasm of breast (principal) ==

== ENCOUNTER 2025-02-01 10:24 | Day surgery (SDC) | payer OTHER ==
[~2025-02-01] VITALS: Ht 165.1 cm; Wt 87.2 kg
[~2025-02-01 10:24] MED LIST changes: +AMOX875T2 PO; +COLA100C5 PO; +DOCU100C16 PO; +LIDOCAINE 2% 100 MG/5 ML SDV (FOR ANES.) As Ordered ONE; +MIRA3350 PO; -OMEP40CA5; +OMEP40CA5 PO; +POLY510P14; +SENN-186 PO
[2025-02-01] MEDS ORDERED: IBUP200C25 PO (10:48)
[2025-02-01 11:56] VITALS: TEMP 97
[2025-02-01 12:20] VITALS: BP 122/69; O2SAT 100
== END 2025-02-01 12:22 | disposition home or self-care (01) ==
LOC: M OPP 10:24
PROVIDERS: ATTEND Surgery
DX: K64.8 Other hemorrhoids (principal); Q43.8 Other specified congenital malformations of intestine; R19.4 Change in bowel habit; K44.9 Diaphragmatic hernia without obstruction or gangrene; K52.832 Lymphocytic colitis; K31.7 Polyp of stomach and duodenum; Z88.5 Allergy status to narcotic agent; Z91.040 Latex allergy status; Z91.018 Allergy to other foods; Z79.899 Other long term (current) drug therapy
CPT/HCPCS: 43239; 45380; 88305; J3010

== ENCOUNTER → 2025-04-18 | Outpatient (CLI) | payer OTHER ==
[~2025-04-18] MED LIST changes: +IBUP200C25 PO; -LIDOCAINE 2% 100 MG/5 ML SDV (FOR ANES.) As Ordered ONE
== END ==
LOC: M WHC 14:37
PROVIDERS: ATTEND Obstetrics & Gynecology
DX: R10.20 Pelvic and perineal pain unspecified side (principal); N88.8 Other specified noninflammatory disorders of cervix uteri

== ENCOUNTER → 2025-06-14 | Outpatient (CLI) | payer OTHER | LOC: M WHC 14:32 | PROVIDERS: ATTEND Obstetrics & Gynecology | DX: Z12.31 Encounter for screening mammogram for malignant neoplasm of breast (principal) ==